=== PATIENT | female | born 1955 | race African-American/Black ===

== ENCOUNTER 2016-09-17 11:09 | Day surgery (SDC) | payer BC ==
[~2016-09-17 11:09] MED LIST: DIPHENHYDRAMINE HCL 50 MG/ML VIAL ONE; MIDAZOLAM 2 MG/2 ML INJ ONE; NALOXONE HCL INJ/PF 0.4 MG/1 ML SDV ONE; ONDANSETRON HCL INJ/PF 4 MG/2 ML SDV ONE
[2016-09-17] MEDS ORDERED: EPINEPHRINE INJ 1 MG/10 ML DISP.SYRIN ONE (11:10)
[2016-09-17] MEDS ORDERED: FLUMAZENIL INJ 0.5 MG/5 ML VIAL IV ONE (11:10)
[2016-09-17] MEDS ORDERED: GLUCAGON,HUMAN RECOMB 1 MG INJ ONE (11:10)
[2016-09-17] MEDS: MIDAZOLAM 2 MG/2 ML INJ ONE ×3 (12:34→12:44)
[2016-09-17] MEDS: FENTANYL CITRATE INJ/PF 100 MCG/2 ML AMPUL ONE ×4 (12:36→12:54)
[2016-09-17 14:13] VITALS: BP 134/88
--- NOTE | 2016-09-17 14:35 | Operative Report ---
Operative Report DATE OF SURGERY: 09/17/16 Operative Report: The risks, benefits and alternatives of the procedure including risks of bleeding, perforation requiring surgery are explained to the patient detail and informed consent was obtained. Patient was brought back to the endoscopy suite and placed in the left, lateral decubital position. Timeout was called. Conscious sedation medications are provided. A rectal examination was done which did not reveal any masses, tears or fissures. An Olympus video scope was inserted into the patient's rectum. The scope was then guided carefully all the way to the cecum. The cecum was identified by the usual anatomical landmarks including the ileocecal valve as well as the appendiceal office. Photodocumentation is obtained. Prep was good. The scope was then sequentially pulled back via the various segments of the colon including the ascending colon, hepatic flexure, transverse colon, splenic flexure, descending colon and finding to the rectosigmoid portions of the colon. Retroflexion maneuver was performed. PREOPERATIVE DIAGNOSIS: Blood in stool. POSTOPERATIVE DIAGNOSIS: 1 small clean base right side: Ulcer status post biopsy. Diverticulosis. 3 colon polyps. The first is a sessile polyp noted at the area of the hepatic flexure which was removed via snare polypectomy and retrieved. The second is a larger pedunculated polyp was removed via snare polypectomy. The third is a small polyp in the rectosigmoid junction removed via snare polypectomy all of which are retrieved. Internal hemorrhoids OPERATION: Colonoscopy with biopsy. Colonoscopy with snare polypectomy SURGEON: OLEG RIBEIRO ANESTHESIA: Moderate Sedation - 6 mg of Versed, 125 mcg of fentanyl. Conscious sedation monitoring time 30 minutes. TISSUE REMOVED OR ALTERED: Polyps were retrieved. The larger pedunculated polyp in the area of the sigmoid was removed in 2 sections. COMPLICATIONS: None. ESTIMATED BLOOD LOSS: None. INTRAOPERATIVE FINDINGS: As described above. PROCEDURE: Patient tolerated procedure well. No immediate postprocedure complications are noted. Patient discharged in good condition. Discharge date 09/17/2016. Discharge diet: Regular. Discharge activity: Regular. 2-3 week follow-up to discuss findings. 1 year surveillance colonoscopy due to the pedunculated polyp and sludge in the sigmoid. We will wait on biopsies. Patient is instructed to call the office or proceed to the emergency room should there be any further problems or questions.
== END 2016-09-17 14:15 | disposition home or self-care (01) ==
LOC: END 11:09
PROVIDERS: ATTEND Internal Medicine Gastroenterology
PROC: 0DBN8ZX Excision of Sigmoid Colon, Via Natural or Artificial Opening Endoscopic, Diagnostic (ICD-10-PCS; 2016-09-17)
PROC: 0DBK8ZX Excision of Ascending Colon, Via Natural or Artificial Opening Endoscopic, Diagnostic (ICD-10-PCS; 2016-09-17)
PROC: 0DBF8ZX Excision of Right Large Intestine, Via Natural or Artificial Opening Endoscopic, Diagnostic (ICD-10-PCS; principal; 2016-09-17 12:00)
PROC: 0DBP8ZX Excision of Rectum, Via Natural or Artificial Opening Endoscopic, Diagnostic (ICD-10-PCS; 2016-09-17 12:00)
DX: D12.7 Benign neoplasm of rectosigmoid junction (principal); K63.5 Polyp of colon; K61.0 Anal abscess; K62.89 Other specified diseases of anus and rectum; K64.8 Other hemorrhoids; I10 Essential (primary) hypertension; Z79.899 Other long term (current) drug therapy; E66.9 Obesity, unspecified; Z68.35 Body mass index [BMI] 35.0-35.9, adult; Z85.41 Personal history of malignant neoplasm of cervix uteri
CPT/HCPCS: 45380; 45385; 88305 ×2; J2250; J3010; J0171; J1200; J1610; J2310; J2405; J3490

== ENCOUNTER 2018-07-12 10:35 | Emergency (ER) | payer BC ==
--- NOTE | 2018-07-12 11:07 | ER Document Report ---
ED General - General Chief Complaint: Neck Swelling Stated Complaint: DIFFICULTY BREATHING Time Seen by Provider: 07/12/18 10:56 Primary Care Provider: JO GARCIA MD [Primary Care Provider] - Follow up in 3-5 days RYLEE MCFARLAND MD [ACTIVE STAFF] - Follow up in 3-5 days TRACY ROSAS MD [ACTIVE STAFF] - Follow up in 3-5 days TRAVEL OUTSIDE OF THE [place] IN LAST 30 DAYS: No - HPI Notes: 62-year-old female with a history of hypertension colon cancer and cervical cancer, she cannot remember any other form of cancer that she had and ulcerative colitis presents to the ED with stating that she feels like she has a mass on her left neck, states it feels like it is difficult surgery, this started approximately 3 hours ago when she was at work. Patient is seen at [facility] for her PCP care. She states she did have an episode of vomiting and states episode lasted about 45 minutes however has resolved prior to coming to the emergency room. Patient is not receiving any current radiation or chemotherapy. Patient was given 4 mg of Zofran EMS prior to arrival. Patient reports eating a slice acute, with to throat swelling. No new medications or travel. Is talking with out any difficulty, denies any trismus, drooling. Denies fevers, chills, chest pain,palpitations, shortness of breath, dyspnea, nausea, vomiting, diarrhea, abdominal pain, hematuria,blurred vision, double vision, loss of vision, speech changes, LH, dizziness, syncope, headaches, wheezing, ST, URI, neck pain, weakness, bowel or bladder dysfunction, saddle anesthesia, numbness or tingling in bilateral upper or lower extremities equally, muscle paralysis, weakness in bilateral upper or lower extremities equally or rash. - Related Data Allergies/Adverse Reactions: No Known Allergies Allergy (Verified 09/17/16 11:17) Past Medical History - General Information source: Patient - Social History Smoking Status: Never Smoker Chew tobacco use (# tins/day): No Frequency of alcohol use: None Drug Abuse: None Family History: Hypertension Patient has suicidal ideation: No Patient has homicidal ideation: No - Past Medical History Cardiac Medical History: Reports: Hx Hypertension Denies: Hx Coronary Artery Disease, Hx Heart Attack Pulmonary Medical History: Denies: Hx Asthma, Hx Bronchitis, Hx COPD, Hx Pneumonia Neurological Medical History: Denies: Hx Cerebrovascular Accident, Hx Seizures Renal/ Medical History: Denies: Hx Peritoneal Dialysis Musculoskeletal Medical History: 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), KNEES Past Surgical History: Reports: Hx Gynecologic Surgery - part of cervix removed due to cancer, Hx Hysterectomy - Immunizations Hx Diphtheria, Pertussis, Tetanus Vaccination: Yes - 2007 Review of Systems - Review of Systems Constitutional: See HPI EENT: See HPI Cardiovascular: No symptoms reported Respiratory: No symptoms reported Gastrointestinal: No symptoms reported Genitourinary: No symptoms reported Female Genitourinary: No symptoms reported Musculoskeletal: No symptoms reported Skin: No symptoms reported Hematologic/Lymphatic: No symptoms reported Neurological/Psychological: No symptoms reported Physical Exam - Vital signs Vitals: Resp Pulse Ox 16 98 07/12/18 10:45 07/12/18 10:45 - Notes Notes: PHYSICAL EXAMINATION: GENERAL: Well-appearing, well-nourished and in no acute distress. Poor historian HEAD: Atraumatic, normocephalic. EYES: Pupils equal round and reactive to light, extraocular movements intact, conjunctiva are normal. ENT: Nares patent, oropharynx clear without exudates. Moist mucous membranes. Uvula midline, no uvula deviation, airway patent. Tonsils +2 bilaterally. No erythema or exudates noted on exam. No trismus, drooling. No TMJ noted. NECK: Normal range of motion There is slight submental edema to left however patient does have scant cervical bilateral lymphadenopathy LUNGS: Breath sounds clear to auscultation bilaterally and equal. No wheezes rales or rhonchi. HEART: Regular rate and rhythm without murmurs ABDOMEN: Soft, nontender, nondistended abdomen. No guarding, no rebound. No masses appreciated. Female : deferred Musculoskeletal: Normal range of motion, no pitting or edema. No cyanosis. NEUROLOGICAL: Cranial nerves grossly intact. Normal speech, normal gait. Normal sensory, motor exams PSYCH: Normal mood, flat affect SKIN: Warm, Dry, normal turgor, no rashes or lesions noted. 22-like and then on the other half of a flight Course - Re-evaluation Re-evalutation: 07/12/18 15:24 62-year-old female afebrile vitals stable no distress presents for evaluation difficulty breathing feeling like she has a left cervical nodule that started approximately 3 hours ago after eating cucumber as well as she states when she was vomiting it was difficult, patient is a poor historian and does have a flat affect. CBC negative for leukocytosis or anemia, patient states difficulty breathing and difficulty swallowing resolved when she came to the emergency room. Patient is not having any current difficulty of breathing. Patient does have a history of cervical, colon and another cancer she cannot recall and is not receiving any chemotherapy or radiation. Patient denies smoking, is not sure if she has any other malignancy and is not been seen by an onc rapid strep and rapid ologist. Has been seen by her primary care provider however recently her primary care provider Dr. Garcia, did retire, within the last month. Influenza negative, throat culture ordered. CBC negative for leukocytosis or anemia, CMP negative for hepatic or renal dysfunction, initial set of troponin no patient is not having any chest pain was negative. Urinalysis showspatient does have a UTI, will order urine culture and treat accordingly. patient states she was having difficulty breathing and feels short of breath, due to history of cancer, PERC rule is positive. CTA negative for any acute findings per radiology. Dr. Janna Hobson, supervising physician, at bedside to evaluate patie nt, patient did have some left submental edema. CT neck with IV contrast ordered. Call placed to Dr. Fuentes, radiologist to discuss findings at 1445. CT soft tissue neck negative for any acute metastasis or abscesses bilaterally. Consulted with Dr. Drayl Fuentes, radiologist on-call at 1533 who reviewed radiological images with this provider, who emphatically expressed that there was no abscess or masses noted on the CT soft tissue neck bilaterally, images were reviewed with the radiologist. Throughout duration of ER visit, patient remained afebrile vitals stable in no distress. Suspect patient has had very have had some distress from having an issue swallowing cucumber, this is why we will start her on some oral prednisone. Suspect there is an ongoing anxiety with patient due to the fact her sister recently was diagnosed with thyroid cancer and with her past medical history of cancer however discussed with patient that her CT is negative at this will have a follow-up with ear nose and throat. due to patent airway, uvula midline 6 hours patient had been and has been in no distress vital signs stable has been afebrile. has not had any difficulty swallowing. Discussed with patient that she does need to follow-up with an ear nose and throat provider, will start her on oral steroids 20 mg 3 times daily for 5 days, to follow a liquid diet for the next couple of days are seen by her nose and throat. Advised if patient experiences any difficulty breathing, difficulty swallowing, fever, vomiting etc. to return to the emergency room immediately. Prior to discharge, patient ate 6 try crackers all at once without drinking any water, then she stated that it was difficult to swallow. Discussed with patient that she needs to eat small amounts, and not over eat all at once, sip on liquids, avoid substances such as dry crackers, meats where she has to chew excessively, spicy foods, extremely hot foots, etc until she is evaluated in your nose and throat. She has been awaiting for results for the last 6 hours without anything to eat or drink, patient states she did feel a little weak, 8 ounces only she is given, on reevaluation patient states that she did feel better was agreeable to go home with steroids and follow-up for ear nose and throat. All questions and concerns answered by this provider. Discharge patient was discharged home with the understanding to return if she has any difficulty breathing eating or any worsening symptoms. - Vital Signs Vital signs: Temp Pulse Resp BP Pulse Ox 98.5 F 83 17 116/76 97 07/12/18 10:46 07/12/18 10:59 07/12/18 16:10 07/12/18 16:10 07/12/18 16:10 - Laboratory Result Diagrams: 07/12/18 11:04 07/12/18 11:04 Laboratory results interpreted by me: 07/12/18 07/12/18 07/12/18 11:04 11:04 11:04 RDW 15.3 H Seg Neutrophils % 78.2 H D-Dimer BUN 22 H Est GFR ( Amer) 55 L Est GFR (Non-Af Amer) 46 L Creatine Kinase 238 H Urine Protein 100 H Urine Blood SMALL H Urine Urobilinogen 4.0 H Ur Leukocyte Esterase SMALL H 07/12/18 11:04 RDW Seg Neutrophils % D-Dimer 1.09 H BUN Est GFR ( Amer) Est GFR (Non-Af Amer) Creatine Kinase Urine Protein Urine Blood Urine Urobilinogen Ur Leukocyte Esterase Discharge - Discharge Clinical Impression: Left cervical lymphadenopathy UTI (urinary tract infection) Qualifiers: Urinary tract infection type: acute cystitis Hematuria presence: with hematuria Qualified Code(s): N30.01 - Acute cystitis with hematuria Condition: Stable Disposition: HOME, SELF-CARE Instructions: Growth or Mass, Pending Workup ([facility]), Nitrofurantoin ([facility]), Urinary Anesthetic Agent ([facility]), Urinary Tract Infection ([facility]) Additional Instructions: Your CT of your neck with IV contrast was normal as well as your CTA for any blood clots or abnormal findings. All of your blood work was normal. You do have a UTI, will start you on antibiotics. Will call you with culture results if antibiotic is not appropriate and needs to be switched. Increase oral hydration. Follow-up with your primary care provider within 24-48 hours. Will give you an ENT referral, needs follow-up within 24-48 hours Return immediately for any new or worsening symptoms. Follow up with primary care provider, call tomorrow to make followup appointment. Prescriptions: Nitrofurantoin Macrocrystal [Macrodantin] 100 mg PO BID #20 capsule Prednisone [Deltasone 20 mg Tablet] 3 tab PO DAILY 5 Days #15 tablet Forms: Return to Work Referrals: TRACY ROSAS MD [ACTIVE STAFF] - Follow up in 3-5 days JO GARCIA MD [Primary Care Provider] - Follow up in 3-5 days RYLEE MCFARLAND MD [ACTIVE STAFF] - Follow up in 3-5 days
[2018-07-12 11:38] LABS: ABSOLUTE BASOPHILS # (AUTO) 0.1 10^3/uL (0.0-0.2); ABSOLUTE EOSINOPHILS # (AUTO) 0.1 10^3/uL (0.0-0.6); ABSOLUTE LYMPHOCYTES (AUTO) 1.3 10^3/uL (0.5-4.7); ABSOLUTE MONOCYTES (AUTO) 0.7 10^3/uL (0.1-1.4); ABSOLUTE NEUT (AUTO) 7.6 10^3/uL (1.7-8.2); BASOPHILS % (AUTO) 0.9 % (0-2); EOSINOPHILS % (AUTO) 0.8 % (0-6); HEMATOCRIT 40.1 % (36.0-47.0); HEMOGLOBIN 13.7 g/dL (12.0-15.5); LYMPHOCYTES % (AUTO) 13.2 % (13-45); MEAN CORPUSCULAR HEMOGLOBIN 31.2 pg (27.0-33.4); MEAN CORPUSCULAR HGB CONC 34.2 g/dL (32.0-36.0); MEAN CORPUSCULAR VOLUME 91 fl (80-97); MONOCYTES % (AUTO) 6.9 % (3-13); PLATELET COUNT 266 10^3/uL (150-450); RED BLOOD COUNT 4.39 10^6/uL (3.72-5.28); RED CELL DISTRIBUTION WIDTH 15.3 % (11.5-14.0); SEGMENTED NEUTROPHILS % (AUTO) 78.2 % (42-78); TOTAL CELLS COUNTED % (AUTO) 100 %; WHITE BLOOD COUNT 9.7 10^3/uL (4.0-10.5)
[2018-07-12 11:43] LABS: AMORPHOUS SEDIMENT,URINE TRACE /HPF; APPEARANCE,URINE CLOUDY; BILIRUBIN,URINE NEGATIVE (NEGATIVE); COLOR,URINE AMBER; GLUCOSE, URINE NEGATIVE (NEGATIVE); KETONES,URINE NEGATIVE (NEGATIVE); LEUKOCYTE ESTERASE,URINE SMALL (NEGATIVE); NITRITE,URINE NEGATIVE (NEGATIVE); PROTEIN,URINE 100 mg/dL (NEGATIVE); URINE SPECIFIC GRAVITY 1.015
[2018-07-12 11:48] LABS: ALANINE AMINOTRANSFERASE 26 U/L (9-52); ALBUMIN 3.9 g/dL (3.5-5.0); ALKALINE PHOSPHATASE 74 U/L (38-126); ANION GAP 8 (5-19); ASPARTATE AMINO TRANSFERASE 20 U/L (14-36); BILIRUBIN,DIRECT 0.3 mg/dL (0.0-0.4); BILIRUBIN,TOTAL 0.4 mg/dL (0.2-1.3); BLOOD UREA NITROGEN 22 mg/dL (7-20); CALCIUM 9.7 mg/dL (8.4-10.2); CARBON DIOXIDE 28 mmol/L (22-30); CHLORIDE 105 mmol/L (98-107); CREATINE KINASE 238 U/L (30-135); GLUCOSE 99 mg/dL (75-110); SODIUM 140.6 mmol/L (137-145); TOTAL PROTEIN 6.8 g/dL (6.3-8.2)
--- NOTE | 2018-07-12 11:53 | RADIOLOGY REPORT (SQ) ---
EXAM DESCRIPTION: CHEST SINGLE VIEW COMPLETED DATE/TIME: 07/12/2018 11:26 am REASON FOR STUDY: sob COMPARISON: 10/31/2009 EXAM PARAMETERS: NUMBER OF VIEWS: One view. TECHNIQUE: Single frontal radiographic view of the chest acquired. RADIATION DOSE: NA LIMITATIONS: None. FINDINGS: LUNGS AND PLEURA: No opacities, masses or pneumothorax. No pleural effusion. MEDIASTINUM AND HILAR STRUCTURES: No masses. Contour normal. HEART AND VASCULAR STRUCTURES: Cardiomegaly. Normal vasculature. BONES: No acute findings. HARDWARE: None in the chest. OTHER: No other significant finding. IMPRESSION: 1. No evidence of acute pulmonary findings. 2. Cardiomegaly. No evidence for failure. TECHNICAL DOCUMENTATION: JOB ID: [id number] [employer]- All Rights Reserved Reading location - IP/workstation name: [email or web address]
[2018-07-12 12:00] LABS: CREATINE KINASE MB 1.15 ng/mL (<4.55)
[2018-07-12 12:01] LABS: TROPONIN I < 0.012 ng/mL
--- NOTE | 2018-07-12 12:09 | ER Document Report ---
Doctor's Note Notes: 07/12/18 12:08 I personally and independently obtained patient history and examined the patient and have reviewed the APC's note, reviewed, discussed and agree with their assessment and plan. HISTORY OF PRESENT ILLNESS: Patient is a 62-year-old female that presents to the emergency department for chief complaint of neck swelling and shortness of breath. Patient symptoms began today. ROS: Constitutional: Negative for fever. Cardiovascular: Negative for chest pain. Respiratory: shortness of breath. Gastrointestinal: Negative for vomiting or abdominal pain Musculoskeletal: Negative for arm, leg or back pain Skin: Negative for rash. Neurological: Negative for weakness or numbness. Unless otherwise stated in this report the patient's positive and negative responses for review of systems for constitutional, eyes, ENT, cardiovascular, respiratory, gastrointestinal, neurological, genitourinary, musculoskeletal, and integumentary systems and related systems to the presenting problem are either as stated in the HPI or were not pertinent or were negative for the symptoms and/or complaints related to the presenting medical problem. PHYSICAL EXAMINATION: Vital signs reviewed, nursing noted reviewed. GENERAL: Well-appearing, well-nourished and in no acute distress. HEAD: Atraumatic, normocephalic. EYES: Eyes appear normal, conjunctiva are normal. ENT: nares patent, oropharynx clear without exudates. Moist mucous membranes. NECK: Normal range of motion, bilateral lymphadenopathy. Left submental edema, trachea midline, no stridor LUNGS: Breath sounds clear to auscultation bilaterally and equal. No wheezes rales or rhonchi. HEART: Regular rate and rhythm without murmurs ABDOMEN: Soft, nontender, normoactive bowel sounds. No rebound, guarding, or rigidity. No masses appreciated. EXTREMITIES: Nontender, good range of motion, no pitting or edema. NEUROLOGICAL: No focal neurological deficits. Moves all extremities spontaneously Motor and sensory grossly intact on exam. PSYCH: Normal mood, normal affect. SKIN: Warm, Dry, normal turgor, no rashes or lesions noted on exposed MEDICAL DECISION MAKING: Patient seen and evaluated by myself. Agree with plan of care. She is in no acute distress on my exam. Please review detail APC documentation. *Note is created using voice recognition software and may contain spelling, syntax or grammatical errors.
[2018-07-12 12:40] LABS: A TYPE INFLUENZA AG NEGATIVE (NEGATIVE); B INFLUENZA AG NEGATIVE (NEGATIVE)
--- NOTE | 2018-07-12 12:46 | RADIOLOGY REPORT (SQ) ---
EXAM DESCRIPTION: CTA CHEST COMPLETED DATE/TIME: 07/12/2018 12:25 pm REASON FOR STUDY: sob, hx of Ca, positive PERC rule. COMPARISON: None. TECHNIQUE: CT scan of the chest performed using helical scanning technique with dynamic intravenous contrast injection. Images reviewed with lung, soft tissue and bone windows. Reconstructed coronal and sagittal MPR images reviewed. Additional 3 dimensional post-processing performed to develop Maximal Intensity Projection images (SC P). All images stored on PACS. All CT scanners at this facility use dose modulation, iterative reconstruction, and/or weight based d osing when appropriate to reduce radiation dose to as low as reasonably achievable (ALARA). [facility]: Dose Right [facility]: CareDose [facility]: Dose Right [facility]: Teradose 4D [facility]: Solar3D CONTRAST TYPE AND DOSE: contrast/concentration: Isovue 350.00 mg/ml; Total Contrast Delivered: 74.0 ml; Total Saline Delivered: 90.0 ml Contrast bolus optimized for the pulmonary arteries. Not diagnostic for the aorta. RENAL FUNCTION: BUN 22 creatinine 1.2. RADIATION DOSE: CT Rad equipment meets quality standard of care and radiation dose reduction techniq ues were employed. CTDIvol: 18.8 - 29.4 mGy. DLP: 1610 mGy-cm. . LIMITATIONS: None. FINDINGS: LUNGS AND PLEURA: No masses, infiltrates, or pneumothorax. No pleural effusions or pleura l calcifications. AORTA AND GREAT VESSELS: No aneurysm. Contrast bolus not optimized for the aorta. HEART: No pericardial effusion. No significant coronary artery calcifications. PULMONARY ARTERIES: No emboli visualized in the main pulmonary arteries or the segmental branches. HILAR AND MEDIASTINAL STRUCTURES: No identified masses or abnormal nodes. HARDWARE: None in the chest. UPPER ABDOMEN: No significant findings. Limited exam. THYROID AND OTHER SOFT TISSUES: No masses. No adenopathy. BONES: No acute or significant finding. 3D MIPS: Confirm above findings. OTHER: No other significant finding. IMPRESSION: NORMAL CTA OF THE CHEST. NO PULMONARY EMBOLI. COMMENT: Quality ID # [id number]: Final reports with documentation of one or more dose reduction techniques (e.g., Automated exposure control, adjustment of the mA and/or kV according to patient size, use of iterative reconstruction technique) TECHNICAL DOCUMENTATION: JOB ID: [id number] [employer]- All Rights Reserved Reading location - IP/workstation name: [email or web address]
--- NOTE | 2018-07-12 12:50 | RADIOLOGY REPORT (SQ) ---
EXAM DESCRIPTION: CT SOFT TISSUE NECK WITH COMPLETED DATE/TIME: 07/12/2018 12:25 pm REASON FOR STUDY: left cervical nodule COMPARISON: None. TECHNIQUE: Post IV contrasted scanning from skull base through lung apices with review of bone, soft tissue and lung windows. Reconstructed coronal and sagittal MPR images reviewed. All images stored on PACS. All CT scanners at this facility use dose modulation, iterative reconstruction, and/or weight based d osing when appropriate to reduce radiation dose to as low as reasonably achievable (ALARA). [facility]: Dose Right [facility]: CareDose [facility]: Dose Right [facility]: Teradose 4D [facility]: edulio CONTRAST TYPE AND DOSE: 74 mL Omnipaque 350- low osmolar. RENAL FUNCTION: BUN 22 creatinine 1.2. RADIATION DOSE: . LIMITATIONS: None. FINDINGS: SKULL BASE: Intact. MAJOR SALIVARY GLANDS: No solid or cystic masses. No inflammatory changes. LYMPHADENOPATHY: No adenopathy. MUCOSAL MASSES OR ASYMMETRY: No mucosal masses or asymmetry. LARYNX/CORDS: No abnormal findings. VASCULAR STRUCTURES: The major vessels are patent. LUNG APICES: Clear. BONES: Intact. THYROID: Normal size. No masses. PARANASAL SINUSES: Clear. OTHER: No other significant finding. IMPRESSION: NO SIGNIFICANT FINDING IN THE SOFT TISSUES OF THE NECK. NO SOFT TISSUE MASS OR SIGNIFIC ANT ADENOPATHY. TECHNICAL DOCUMENTATION: JOB ID: [id number] Quality ID # [id number]: Final reports with documentation of one or more dose reduction techniques (e.g., Au tomated exposure control, adjustment of the mA and/or kV according to patient size, use of iterative reconstruction technique) 2010 [employer]- All Rights Reserved Reading location - IP/workstation name: [email or web address]
--- NOTE | 2018-07-12 13:29 | EKG REPORT ---
SEVERITY:- NORMAL ECG - SINUS RHYTHM : Confirmed by: Tyrese Salter MD 12-Jul-2018 13:28:04
[2018-07-12 16:19] VITALS: BP 116/76
== END 2018-07-12 16:20 | disposition home or self-care (01) ==
LOC: ER 10:35
DX: N30.01 Acute cystitis with hematuria (principal); R60.9 Edema, unspecified; R06.02 Shortness of breath; R11.10 Vomiting, unspecified; C18.9 Malignant neoplasm of colon, unspecified; I10 Essential (primary) hypertension
CPT/HCPCS: 36415; 70491; 71045; 71275; 80053; 81001; 82550; 82553; 84484; 85025; 85379; 87070; 87086; 87088; 87186; 87804; 87880; 93005; 93010; 99284

== ENCOUNTER → 2019-05-23 | Outpatient (CLI) | payer BC ==
--- NOTE | 2019-05-30 13:50 | WOMENS IMAGING REPORT ---
EXAM DESCRIPTION: BILAT SCREENING MAMMO W/CAD COMPLETED DATE/TIME: 05/23/2019 1:37 pm REASON FOR STUDY: Z12.31 ENCOUNTER FOR SCREENING MAMMOGRAM FOR MALIGNANT NEOPLASM OF [id number] E NCNTR SCREEN MAMMOGRAM FOR MALIGNANT NEOPLASM OF JANETT COMPARISON: None. EXAM PARAMETERS: Standard craniocaudal and mediolateral oblique views of each breast recorded using digital acquisition. Read with the assistance of CAD. .[facility] - [employer]iology Version 9.2 LIMITATIONS: None. FINDINGS: RIGHT BREAST MASSES: No suspicious masses. CALCIFICATIONS: No new or suspicious calcifications. ARCHITECTURAL DISTORTION: None. ASYMMETRY: None noted. OTHER: No other significant findings. LEFT BREAST MASSES: There is enlarged left axillary lymph node. CALCIFICATIONS: No new or suspicious calcifications. ARCHITECTURAL DISTORTION: None. ASYMMETRY: Focal asymmetry left central upper breast approximately 12 o'clock position 2- 3 cm from t he nipple. OTHER: No other significant findings. IMPRESSION: 1. Focal asymmetry central left breast 12- 1 o'clock position, 2- 3 cm from the nipple. Further eval uation with diagnostic mammogram and possible ultrasound evaluation recommended. 2. Enlarged left axillary lymph node. Ultrasound of the left axilla is recommended for further evalu ation. 0 Incomplete: Needs Additional Imaging Evaluation and/or prior Mammograms for Comparison. BREAST DENSITY: b. There are scattered areas of fibroglandular density. BIRAD: ASSESSMENT: 0 Incomplete: Needs Additional Imaging Evaluation and/or prior Mammograms for C omparison. RECOMMENDATION: RECOMMENDED FOLLOW-UP: Left breast diagnostic mammogram and left breast and axillary ultrasound. The patient will be contacted for additional imaging. COMMENT: The patient has been notified of the results by letter per SA requirements. Additional no tification policies are in place for contacting patient with suspicious or incomplete findings. Quality ID #225: The [employer] recommends an annual screening mammogram for women aged 40 years or over. This facility utilizes a reminder system to ensure that all patients receive reminder letters, and/or direct phone calls for appointments. This includes reminders for routine scr eening mammograms, diagnostic mammograms, or other Breast Imaging Interventions when appropriate. Th is patient will be placed in the appropriate reminder system. TECHNICAL DOCUMENTATION: FINDING NUMBER: (1) ASSESSMENT: (1) JOB ID: [id number] 2011 [employer]- All Rights Reserved Reading location - IP/workstation name: [email or web address]
== END ==
LOC: WI 14:04
PROVIDERS: ATTEND Nurse Practitioner Family
DX: Z12.31 Encounter for screening mammogram for malignant neoplasm of breast (principal); N64.89 Other specified disorders of breast; R59.0 Localized enlarged lymph nodes
CPT/HCPCS: 77067

== ENCOUNTER → 2019-05-24 | Outpatient (CLI) | payer BC ==
--- NOTE | 2019-05-24 17:42 | RADIOLOGY REPORT (SQ) ---
EXAM DESCRIPTION: HAND RIGHT 3 VIEWS COMPLETED DATE/TIME: 05/24/2019 5:20 pm REASON FOR STUDY: SWELLING OF RT HAND M79.89 OTHER SPECIFIED SOFT TISSUE DISORDERS COMPARISON: None. EXAM PARAMETERS: NUMBER OF VIEWS: Three views. TECHNIQUE: AP, lateral and oblique radiographic images acquired of the right hand. LIMITATIONS: None. FINDINGS: MINERALIZATION: Normal. BONES: No acute fracture or dislocation. No worrisome bone lesions. Mild degenerative changes with sc lerosis and osteophytes in the DIP joints, 2nd MCP joint, and 1st carpometacarpal joint. JOINTS: No erosions. No liam-articular osteopenia. No chondrocalcinosis. SOFT TISSUES: No swelling. No calcifications. OTHER: No other significant finding. IMPRESSION: DEGENERATIVE JOINT DISEASE. NO OTHER SIGNIFICANT FINDINGS. TECHNICAL DOCUMENTATION: JOB ID: [id number] 2010 [employer]- All Rights Reserved Reading location - IP/workstation name: [email or web address]
== END ==
LOC: RAD 16:54
PROVIDERS: ATTEND Nurse Practitioner Family
DX: M79.89 Other specified soft tissue disorders (principal)

== ENCOUNTER → 2019-06-08 | Outpatient (CLI) | payer BC ==
--- NOTE | 2019-06-08 10:09 | WOMENS IMAGING REPORT ---
EXAM DESCRIPTION: LEFT DIAGNOSTIC MAMMO W/CAD COMPLETED DATE/TIME: 06/08/2019 9:56 am REASON FOR STUDY: R92.2 INCONCLUSIVE MAMMOGRAM R92.2 INCONCLUSIVE MAMMOGRAM COMPARISON: 05/23/2019 EXAM PARAMETERS: Additional true lateral view. Spot compression views in orthogonal planes of the a terrance of concern LIMITATIONS: None. FINDINGS: BREAST LATERALITY: left MASSES: No suspicious masses. CALCIFICATIONS: No new or suspicious calcifications. ARCHITECTURAL DISTORTION: None. ASYMMETRY: Normal glandular tissue. OTHER: No other significant findings. IMPRESSION: No significant finding on mammography. Normal glandular tissue. BREAST DENSITY: b. There are scattered areas of fibroglandular density. BIRAD: ASSESSMENT: 1 Negative. RECOMMENDATION: RECOMMENDED FOLLOW UP: Birads 1 or 2: The patient should resume routine screening . SPECIFIC INTERVENTION/IMAGING/CONSULTATION RECOMMENDED:No additional intervention/ imaging/consultati on needed at this time. COMMUNICATION:The negative/benign results were communicated to the patient. COMMENT: The patient has been notified of the results by letter per SA requirements. Additional no tification policies are in place for contacting patient with suspicious or incomplete findings. Quality ID #225: The [employer] recommends an annual screening mammogram for women aged 40 years or over. This facility utilizes a reminder system to ensure that all patients receive reminder letters, and/or direct phone calls for appointments. This includes reminders for routine scr eening mammograms, diagnostic mammograms, or other Breast Imaging Interventions when appropriate. Th is patient will be placed in the appropriate reminder system. TECHNICAL DOCUMENTATION: FINDING NUMBER: (1) ASSESSMENT: (1) JOB ID: [id number] 2010 [employer]- All Rights Reserved Reading location - IP/workstation name: [email or web address]
== END ==
LOC: WI 09:43
PROVIDERS: ATTEND Nurse Practitioner Family
DX: R92.8 Other abnormal and inconclusive findings on diagnostic imaging of breast (principal)
CPT/HCPCS: 77065